=== PATIENT | male | born 1990 | race Caucasian/White ===

== ENCOUNTER 2016-12-22 10:34 | Emergency (ER) | payer SELFPAY ==
[~2016-12-22] VITALS: Ht 167.6 cm; Wt 68.0 kg
--- NOTE | 2016-12-22 10:51 | ED Upper Extremity ---
General Chief Complaint: Laceration Stated Complaint: RIGHT WRIST LAC Source: patient Exam Limitations: no limitations History of Present Illness Time seen by provider: 10:47 Initial Comments To ER with a puncture injury to the radial side of the right wrist over the anatomic snuffbox. He was at urgent care but they told him he might of hit an artery so rather than being evaluated, they sent him here. Tetanus is not up-to -date. This was a work-related injury. He states that he was picking up a board with a nail through it. The sharp end of the nail and pertinently struck him on the radial side of the right wrist. Onset: just prior to arrival Severity: moderate Pain/Injury Location: right wrist Modifying Factors: Worse With Movement Allergies and Home Medications Allergies Coded Allergies: Penicillins (Verified Adverse Reaction, Unknown, N/V, 12/22/16) Home Medications No Active Prescriptions or Reported Meds Constitutional: see HPI EENTM: see HPI Respiratory: no symptoms reported Cardiovascular: no symptoms reported Genitourinary: no symptoms reported Musculoskeletal: see HPI Skin: see HPI Psychiatric/Neurological: No Symptoms Reported Physical Exam Vital Signs Vital Sign - Last 12Hours 12/22/16 10:40 Temp 98.5 Pulse 79 Resp 16 B/P (MAP) 146/106 Pulse Ox 98 Capillary Refill : General Appearance: WD/WN, no apparent distress HEENT: PERRL/EOMI, normal ENT inspection Neck: non-tender, full range of motion Respiratory: no respiratory distress, no accessory muscle use Gastrointestinal: normal bowel sounds, non tender, soft, no pulsatile mass Shoulder: normal inspection, non-tender Elbow/Forearm: normal inspection, non-tender Hand: Right, soft tissue tenderness (there is a puncture wound over the anatomic snuffbox without active bleeding. There is minimal amount of swelling around this. Over the volar side of the wrist the radial artery is palpable and with occlusion of the ulnar artery he still has capillary refill of the fingertips at less than 3 seconds.) Neurologic/Tendon: other (he does complain of tingling in the hand) Neurologic/Psychiatric: alert, normal mood/affect, oriented x 3 Skin: normal color, warm/dry Progress/Results/Core Measures Results/Orders My Orders Orders - SANDIP ROSS APRN Dipht,Pertuss(Acell),Tet Adult (Boostrix (12/22/16 11:00) Wrist, Right, 3 Views Or More (12/22/16 10:57) Vital Signs/I&O Vital Sign - Last 12Hours 12/22/16 10:40 Temp 98.5 Pulse 79 Resp 16 B/P (MAP) 146/106 Pulse Ox 98 Departure Impression Impression: Primary Impression: Puncture wound of wrist Qualified Codes: S61.531A - Puncture wound without foreign body of right wrist , initial encounter Disposition: HOME, SELF-CARE Condition: Stable Departure-Patient Inst. Decision time for Depature: 11:15 Referrals: NO,LOCAL PHYSICIAN (PCP/Family) Primary Care Physician Patient Instructions: Wound Care Add. Discharge Instructions: 1. Puncture wounds have a high risk of infection so follow-up with occupational health. Keep eye out for any increasing redness, swelling, warmth or pus like drainage 2. Antibiotics as directed 3. All discharge instructions reviewed with patient and/or family. Voiced understanding. Scripts Cephalexin (Keflex) 500 Mg Capsule 500 MG PO QID, #20 CAP Prov: SANDIP ROSS FOOTWEAR STITCHER 12/22/16 SANDIP ROSS FOOTWEAR STITCHER Dec 22, 2016 10:50
[2016-12-22] MEDS ORDERED: TETANUS,DIPTH,PERTUSS P/F (BOOSTRIX) 0.5 ML VIAL IM ONE (11:00)
[2016-12-22] MEDS ORDERED: CEPH-507 PO (11:16)
[2016-12-22 11:31] VITALS: BP 148/106
--- NOTE | 2016-12-22 11:40 | Diagnostic Imaging Report ---
INDICATION: Right wrist puncture site marked with a BB. FINDINGS: 3 views of the right wrist demonstrates normal ossification. No fracture, dislocation or foreign body is present. IMPRESSION: Negative right wrist. Dictated by: Dictated on workstation # [id number]
== END 2016-12-22 11:31 | disposition home or self-care (01) ==
LOC: ER 10:38
DX: S61.531A Puncture wound without foreign body of right wrist, initial encounter (principal); Z23 Encounter for immunization; W45.0XXA Nail entering through skin, initial encounter; Y99.0 Civilian activity done for income or pay
CPT/HCPCS: 73110; 90471; 90715